=== PATIENT | male | born 1945 | race Caucasian/White ===

== ENCOUNTER → 2025-02-20 | Outpatient (CLI) | payer MEDICARE, MEDICAID | LOC: M PLARAD 14:36 | PROVIDERS: ATTEND Family Medicine | DX: J92.9 Pleural plaque without asbestos (principal) | CPT/HCPCS: 78815; A9552 ==

== ENCOUNTER → 2025-06-02 | Outpatient (CLI) | payer MEDICARE, MEDICAID ==
[~2025-06-02] MED LIST: ALBU2.5V10; BREO1INH3; ELIQ5TAB; FURO20TA2; GABA-1172; INCR1INH; IPRA2IN; MELO7.5T35; METO1TAB32; MIRT-11; MONT10TA97; PRAM0.252; SIMV40TA20; TAMS1CAP17
== END ==
LOC: M ONCR 12:47
PROVIDERS: ATTEND General Practice
DX: C34.31 Malignant neoplasm of lower lobe, right bronchus or lung (principal); J62.0 Pneumoconiosis due to talc dust; Z77.098 Contact with and (suspected) exposure to other hazardous, chiefly nonmedicinal, chemicals; Z86.711 Personal history of pulmonary embolism; Z87.891 Personal history of nicotine dependence

== ENCOUNTER 2025-06-12 10:55 | Outpatient (RCR) | payer MEDICARE, MEDICAID | END 2025-06-25 | LOC: M ONCR 10:55 | PROVIDERS: ATTEND General Practice | DX: Z51.0 Encounter for antineoplastic radiation therapy (principal); C34.31 Malignant neoplasm of lower lobe, right bronchus or lung ==

== ENCOUNTER 2025-07-03 14:45 | Outpatient (RCR) | payer MEDICARE, MEDICAID | END 2025-07-25 | LOC: M ONCR 14:45 | PROVIDERS: ATTEND General Practice | DX: Z51.0 Encounter for antineoplastic radiation therapy (principal); C34.31 Malignant neoplasm of lower lobe, right bronchus or lung ==

== ENCOUNTER → 2025-10-13 | Outpatient (CLI) | payer MEDICARE, MEDICAID ==
[~2025-10-13] MED LIST changes: +ISOVUE-370 76% 100 ML VIAL As Ordered ONE
== END ==
LOC: M RAD 14:29
PROVIDERS: ATTEND General Practice
DX: C34.31 Malignant neoplasm of lower lobe, right bronchus or lung (principal); J92.9 Pleural plaque without asbestos; R59.9 Enlarged lymph nodes, unspecified; J43.9 Emphysema, unspecified; R91.8 Other nonspecific abnormal finding of lung field
CPT/HCPCS: 71260; Q9967